=== PATIENT | male | born 1970 | race Caucasian/White ===

== ENCOUNTER 2022-04-16 13:27 | Emergency (ER) | payer SELFPAY ==
[~2022-04-16] VITALS: Ht 182.9 cm; Wt 79.4 kg
== END 2022-04-16 14:25 | disposition home or self-care (01) ==
LOC: ER 13:56
DX: H92.01 Otalgia, right ear (principal); H61.21 Impacted cerumen, right ear; F17.210 Nicotine dependence, cigarettes, uncomplicated
CPT/HCPCS: 99282